=== PATIENT | female | born 1945 | race Caucasian/White ===

== ENCOUNTER → 2017-07-12 | Outpatient (CLI) | payer OTHER ==
[~2017-07-12] MED LIST: ACETAMINOPHEN-1 EAC1 PO; BENADRYL25 MG PO; COLACE100 MG PO; FOSAMAX 70 MG T70 MG PO; LEVOTHYROXIN0.088 MG PO; MIRALAX17 GM PO; MYRBETRIQ50 MG PO; NAPROSYN500 MG PO; PRILOSEC 20 MG20 MG PO; PRINZIDE 20-251 EACH PO; VITAMIN D2000 UNIT PO; XANAX 0.5 MG0.5 MG PO; ZOCOR 20 MG TAB20 M1 PO
== END ==
LOC: RAD 10:39
DX: Z12.31 Encounter for screening mammogram for malignant neoplasm of breast (principal)

== ENCOUNTER → 2018-07-24 | Outpatient (CLI) | payer OTHER | LOC: RAD 10:42 | DX: Z12.31 Encounter for screening mammogram for malignant neoplasm of breast (principal) ==

== ENCOUNTER → 2019-12-20 | Outpatient (CLI) | payer OTHER | LOC: BC 08:48 | DX: Z12.31 Encounter for screening mammogram for malignant neoplasm of breast (principal) ==

== ENCOUNTER → 2021-02-03 | Outpatient (CLI) | payer OTHER | LOC: BC 13:05 | PROVIDERS: ATTEND Internal Medicine | DX: Z12.31 Encounter for screening mammogram for malignant neoplasm of breast (principal) ==